=== PATIENT | female | born 1950 | race Caucasian/White ===

== ENCOUNTER 2022-06-21 13:41 | Outpatient (CLI) | payer MEDICARE, SELFPAY ==
[2022-06-21 13:55] LABS: Abs Immature Grans 0.03 10^3/uL (0.0-0.06); Absolute Basophil Count 0.06 10^3/uL (0.0-0.2); Absolute Eosinophil Count 0.11 10^3/uL (0.0-0.7); Absolute Lymphocyte Count 2.32 10^3/uL (1.2-3.4); Absolute Monocyte Count 0.51 10^3/uL (0.1-0.8); Absolute Neutrophil Count 3.86 10^3/uL (1.2-6.7); Basophils % 0.9; Eosinophils % 1.6; HCT 41.1 % (36.0-46.0); HGB 13.3 g/dL (11.2-15.7); Immature Grans % 0.4; Lymphocytes % 33.7; MCH 28.4 pg (27.0-33.0); MCHC 32.4 % (32.0-36.0); MCV 88 fL (80-95); MPV 9.8 fL (8.0-11.0); Monocytes % 7.4; Platelet Count 218 10^3/uL (130-400); RBC 4.68 10^6/uL (3.93-5.22); RDW 13.1 % (11.7-14.6); RDW-SD 42.6 fL; WBC 6.89 10^3/uL (4.4-10.8)
[2022-06-21 15:05] LABS: ALT 19 U/L (14-59); AST 20 U/L (15-37); Albumin 3.7 g/dL (3.4-5.0); Alkaline Phosphatase 66 U/L (46-116); Anion Gap 9.1 mmol/L (3-11); BUN 15 mg/dL (7-18); Bilirubin, Total 0.4 mg/dL (0.2-1.0); CO2 28.9 mmol/L (21.0-32.0); CREATININE 0.8 mg/dL (0.55-1.02); Calcium 8.9 mg/dL (8.5-10.1); Chloride 103 mmol/L (98-107); Estimated GFR 78.72 (mL/min/1.73m2); Folate 14.8 ng/mL (8.6-20.0); Glucose 126 mg/dL (74-106); Potassium 3.8 mmol/L (3.5-5.1); Sodium 141 mmol/L (136-145); TSH (W/Ref FT4) 1.71 uIU/mL (0.36-3.74); Total Protein 7.5 g/dL (6.4-8.2); Vitamin B12 503 pg/mL (193-986)
[2022-06-21 15:21] LABS: LDH 170 U/L (81-234)
== END 2022-06-21 13:42 | disposition home or self-care (01) ==
PROVIDERS: Visit Provider Internal Medicine Hematology & Oncology
DX: C82.10 Follicular lymphoma grade II, unspecified site (principal); R20.8 Other disturbances of skin sensation
CPT/HCPCS: 36415; 80053; 82607; 82746; 83615; 84443; 85025

== ENCOUNTER 2022-11-01 02:04 | Outpatient (CLI) | payer MEDICARE, SELFPAY ==
[2022-11-01 12:47] LABS: Abs Immature Grans 0.01 10^3/uL (0.0-0.06); Absolute Basophil Count 0.04 10^3/uL (0.0-0.2); Absolute Eosinophil Count 0.12 10^3/uL (0.0-0.7); Absolute Lymphocyte Count 2.72 10^3/uL (1.2-3.4); Absolute Monocyte Count 0.53 10^3/uL (0.1-0.8); Absolute Neutrophil Count 2.63 10^3/uL (1.2-6.7); Basophils % 0.7; HCT 42.9 % (36.0-46.0); HGB 13.5 g/dL (11.2-15.7); Immature Grans % 0.2; MCH 27.9 pg (27.0-33.0); MCHC 31.5 % (32.0-36.0); MCV 89 fL (80-95); MPV 9.6 fL (8.0-11.0); Monocytes % 8.8; Neutrophils % 43.3; Platelet Count 219 10^3/uL (130-400); RBC 4.84 10^6/uL (3.93-5.22); RDW 13.3 % (11.7-14.6); RDW-SD 43.7 fL; WBC 6.05 10^3/uL (4.4-10.8)
[2022-11-01 13:01] LABS: ALT 18 U/L (14-59); AST 22 U/L (15-37); Albumin 3.9 g/dL (3.4-5.0); Alkaline Phosphatase 87 U/L (46-116); Anion Gap 5.4 mmol/L (3-11); BUN 11 mg/dL (7-18); Bilirubin, Total 0.4 mg/dL (0.2-1.0); CO2 30.6 mmol/L (21.0-32.0); CREATININE 0.8 mg/dL (0.55-1.02); Calcium 9.1 mg/dL (8.5-10.1); Chloride 105 mmol/L (98-107); Estimated GFR 78.72 (mL/min/1.73m2); Glucose 88 mg/dL (74-106); LDH 161 U/L (81-234); Potassium 4.1 mmol/L (3.5-5.1); Sodium 141 mmol/L (136-145); Total Protein 7.8 g/dL (6.4-8.2)
== END 2022-11-01 02:05 | disposition home or self-care (01) ==
PROVIDERS: Visit Provider Internal Medicine Hematology & Oncology
DX: C82.10 Follicular lymphoma grade II, unspecified site (principal)
CPT/HCPCS: 36415; 80053; 83615; 85025